=== PATIENT | female | born 1950 | race Caucasian/White ===

== ENCOUNTER → 2021-09-19 | Outpatient (CLI) | payer MEDICARE ==
[~2021-09-19] MED LIST: AMIT10 PO; GABA100 PO; INSLIS75I SC; LEVOXYL; LORA1 PO; NAPR500 PO
[2021-09-19 16:13] LABS: BASOPHILS ABSOLUTE AUTO 0.06 K/mm3 (0.00-0.23); BASOPHILS PERCENT AUTO 1 % (0-2); EOSINOPHILS ABSOLUTE AUTO 0.23 K/mm3 (0.00-0.68); EOSINOPHILS PERCENT AUTO 3 % (0-6); Hematocrit 40.4 % (33.0-51.0); Hemoglobin 12.4 g/dL (11.5-16.0); IMMATURE GRAN ABSOLUTE AUTO 0.02 K/mm3 (0.00-0.10); IMMATURE GRAN PERCENT AUTO 0 % (0-1); LYMPHOCYTES ABSOLUTE AUTO 2.07 K/mm3 (0.84-5.20); LYMPHOCYTES PERCENT AUTO 28 % (21-46); MONOCYTES ABSOLUTE AUTO 0.52 K/mm3 (0.16-1.47); MONOCYTES PERCENT AUTO 7 % (4-13); Mean Corpuscular HGB 28.8 pg (26.0-34.0); Mean Corpuscular HGB Conc 30.7 g/dL (31.5-36.5); Mean Corpuscular Volume 94 fL (80-100); Mean Platelet Volume 10.8 fL (9.1-12.4); NEUTROPHILS ABSOLUTE AUTO 4.59 K/mm3 (1.96-9.15); NEUTROPHILS PERCENT AUTO 61 % (41-73); Platelet Count 228 K/mm3 (150-400); RDW Coefficient Variation 14.6 % (11.7-14.2); RDW Standard Deviation 50.4 fL (35.1-46.3); Red Blood Cell Count 4.31 M/mm3 (3.80-5.20); White Blood Cell Count 7.49 K/mm3 (4.00-11.30)
[2021-09-19 16:31] LABS: Alanine Aminotransfer (ALT/SGP 36 U/L (12-78); Albumin, Blood 3.5 g/dL (3.4-5.0); Albumin/Globulin Ratio 0.9 (0.8-1.8); Alk Phos 75 U/L (50-136); Anion Gap 3 mmol/L (6-16); Aspartate Aminotrans (AST/SGOT 25 U/L (12-37); Bilirubin, Total 0.6 mg/dL (0.1-1.0); Blood Urea Nitrogen 17 mg/dL (8-24); Bun/Creatinine Ratio 20.9 (12.0-20.0); CHOL/HDL RATIO 4.3; CO2, Blood 30 mmol/L (21-32); Calcium, Blood 8.7 mg/dL (8.5-10.1); Chloride, Blood 106 mmol/L (98-108); Cholesterol 171 mg/dL (50-200); Creatinine, Blood 0.82 mg/dL (0.40-1.00); Globulin, Blood 3.9 g/dL (2.2-4.0); Glomerular Filtration Rate >60 (60-); Glucose, Blood 106 mg/dL (70-99); HDL Cholesterol 40 mg/dL (>39); LDL/HDL RATIO 2.2; Low Density Lipoprotein Chol 87 mg/dL (0-110); Potassium, Blood 4.2 mmol/L (3.5-5.5); Sodium, Blood 139 mmol/L (136-145); Total Protein, Blood 7.4 g/dL (6.4-8.2); Triglycerides 219 mg/dL (30-160); Very Low Density Lipoprot Chol 43 mg/dL (6-32)
== END | disposition home or self-care (01) ==
LOC: LAB 15:06 → LAB SHORT 15:06
PROVIDERS: Nurse Practitioner
DX: Z11.59 Encounter for screening for other viral diseases (principal); E03.9 Hypothyroidism, unspecified; E78.5 Hyperlipidemia, unspecified; I10 Essential (primary) hypertension; E11.9 Type 2 diabetes mellitus without complications
CPT/HCPCS: 80053; 80061; 82043; 84443; 85025; 86803

== ENCOUNTER → 2021-11-09 | Outpatient (CLI) | payer MEDICARE, OTHER | END | disposition home or self-care (01) | LOC: LAB SHORT 12:05 → LAB 12:05 | DX: E03.9 Hypothyroidism, unspecified (principal) | CPT/HCPCS: 84443 ==

== ENCOUNTER → 2022-08-11 | Outpatient (CLI) | payer MEDICARE, OTHER ==
[2022-08-11 18:20] LABS: Albumin, Blood 3.5 g/dL (3.4-5.0); Albumin/Globulin Ratio 0.8 (0.8-1.8); Bilirubin, Total 0.3 mg/dL (0.1-1.0); Bun/Creatinine Ratio 24.5 (12.0-20.0); Calcium, Blood 9.2 mg/dL (8.5-10.1); Creatinine, Blood 1.02 mg/dL (0.40-1.00); Globulin, Blood 4.5 g/dL (2.2-4.0); Potassium, Blood 4.3 mmol/L (3.5-5.5); Thyroid Stimulating Hormone 1.36 uIU/mL (0.360-4.800)
== END ==
LOC: LAB SHORT 15:38 → LAB 15:38
PROVIDERS: Student in an Organized Health Care Education/Training Program
DX: E03.9 Hypothyroidism, unspecified (principal); M17.11 Unilateral primary osteoarthritis, right knee
CPT/HCPCS: 80053; 84443

== ENCOUNTER → 2024-04-08 | Outpatient (CLI) | payer MEDICARE, OTHER | LOC: LAB SHORT 13:03 → LAB 13:03 | DX: N39.0 Urinary tract infection, site not specified (principal) | CPT/HCPCS: 87086 ==

== ENCOUNTER 2025-04-28 06:04 | Day surgery (SDC) | payer OTHER ==
[~2025-04-28] VITALS: Ht 165.1 cm; Wt 100.1 kg
[2025-04-28] VITALS (14 sets, daily range): BP systolic 120–158; BP diastolic 50–83
[~2025-04-28 06:04] MED LIST changes: +Cyclobenzaprine5 MG PO; +GABA300 PO; +HYDROCODONE-AC1 EA19 PO; +IBUP800 PO; +LEVOTHYROXINE200 MCG PO; +LOSARTAN POTASS25 M1 PO; +METF500 PO; +Pravastatin Sod80 MG PO; +TERBINAFINE HC250 MG PO; +TRAM50 PO; +Venlafaxine HC225 MG PO
[2025-04-28] MEDS ORDERED: Chlorhexidine Mouth Care 15 ML UDC MT SCH (06:20)
[2025-04-28] MEDS ORDERED: Ropivacaine 0.5% HCl/Pf 123.125 MG,EPINEPHrine HCL 0.25 MG,Ketorolac Tromethamine 15 MG... INFIL SCH (06:20)
[2025-04-28] MEDS ORDERED: Tranexamic Acid 100 ML IV SCH (06:20)
[2025-04-28] MEDS ORDERED: CeFAZolin Sodium 2,000 MG in NS 100 ML IV SCH ×2 (06:20→16:00)
[2025-04-28] MEDS ORDERED: CeFAZolin Sodium 2,000 MG VIAL ONE (06:38)
[2025-04-28] MEDS ORDERED: Midazolam HCl 1MG / ML 2ML Vial ONE (07:00)
[2025-04-28] MEDS ORDERED: Metoclopramide HCl 5MG / ML 2ML Vial ONE (07:00)
[2025-04-28] MEDS ORDERED: Ondansetron HCl 2 MG / ML 2ML Vial ONE (07:00)
[2025-04-28] MEDS ORDERED: HYDROmorphone HCl/Pf 1MG SYR ONE (07:00)
[2025-04-28] MEDS ORDERED: Magnesium Sulfate 500 MG / ML 2ML Vial ONE (07:06)
--- NOTE | 2025-04-28 08:10 | NUR ---
History, Chart, Medications and Allergies reviewed before start of procedure.Lungs clear T/O to Auscultation. Patient confirms NPO status and agrees with scheduled surgery. Pre-Op teaching done. Pt verbalizes understanding.DAUGHTER AT BED SIDE
[2025-04-28] MEDS ORDERED: Phenylephrine HCl 100 MCG/ML-NS 10MLSYR (1MG/10ML) ONE (08:38)
[2025-04-28] MEDS ORDERED: ePHEDrine Sulfate 50 MG/ML 1ML Injection ONE (08:39)
[2025-04-28] MEDS ORDERED: Ondansetron HCl 2 MG / ML 2ML Vial IV PRN ×2 (09:25→09:50)
[2025-04-28] MEDS ORDERED: Morphine Sulfate 4 MG/1 ML Injection IV PRN (09:25)
[2025-04-28] MEDS ORDERED: FentaNYL Citrate 50 MCG/ML 2 ML Injection IV PRN ×2 (09:25→09:30)
[2025-04-28] MEDS ORDERED: ePHEDrine Sulfate 50 MG/ML 1ML Injection IV PRN (09:25)
[2025-04-28] MEDS ORDERED: HYDROmorphone HCl/Pf 1MG SYR IV PRN ×2 (09:30→09:40)
[2025-04-28] MEDS ORDERED: Magnesium Hydroxide Conc 10 ML UDC PO PRN (09:40)
[2025-04-28] MEDS ORDERED: Prochlorperazine Edisylate 10 mg Vial IV PRN (09:40)
[2025-04-28] MEDS ORDERED: FLU VACC TS2025(65UP)/MF59C/PF 45 MCG/0.5 ML SYRINGE IM SCH (09:40)
[2025-04-28] MEDS ORDERED: Metoclopramide HCl 5MG / ML 2ML Vial IV PRN (09:45)
[2025-04-28] MEDS ORDERED: ASPI81CH PO (10:47)
[2025-04-28] MEDS ORDERED: Insulin Regular 100 UNIT/ML 10ML Vial SC SCH (11:30)
[2025-04-28] MEDS ORDERED: Ketorolac Tromethamine 15mg Vial IV SCH (12:00)
--- NOTE | 2025-04-28 14:28 | NUR ---
PT ATTEMTPED TO WORK WITH THERAPY COULD NOT AMBULATE SAFELY. PT TRIED PULLING SELF TO CHAIR WHILE THERAPIST AND THIS RN IN ROOM. WAS MAX THREE PERSON TO STAND AND PIVOT TO CHAIR. PT STATED TO "GET MY PAPERS, I'M NOT STAYING". ADVISED PT IT WASN'T SAFE FOR HER TO DC AT THIS TIME. PT UPSET, SAYING CAN'T STAY OVERNIGHT IN HOSPITAL. I ADVISED PT THERE ISN'T A CERTAIN TIME SHE HAS TO DC BY BUT WANT HER TO BE SAFE. PT SITTING IN CHAIR. DAUGHTER IS BEDSIDE. DAUGHTER DISCUSSED GIVING IT MORE TIME W/PT. PT AGREEABLE. ADVISED PT'S DAUGHTER IF THER PATIENT WERE TO TRY TO LEAVE AT THIS TIME, IT WOULD BE AMA. PT'S DAUGHTER STATED SHE EXPLAINED THAT TO PT. PT SITTING UP IN CHAIR ON FAR SIDE OF BED W/CALL LIGHT IN REACH. PROVIDED FRESH ICEWATER TO PT. PHYS THERAPIST STATED WOULD CHECK BACK WITH PT.
[2025-04-28] MEDS ORDERED: MetFORMIN HCl 500 mg PO SCH (17:00)
--- NOTE | 2025-04-28 17:43 | NUR ---
SUMMARY PT REMAINS UNSTABLE FEET. RLE TENDS TO GIVE WHEN ATTEMPTS TO WALK. NEED FOR FURTHER PHYSICAL THERAPY. PT SITTING UP IN CHAIR, EATING DINNER AT THIS TIME. POLAR PACK IN PLACE. CALL LIGHT IN REACH.
[2025-04-29 00:31] VITALS: BP 126/58
--- NOTE | 2025-04-29 03:01 | NUR ---
SHIFT SUMMARY POD 1 S/P R PRISCA; DRESSING CDI. [facility]YO THERAPY IN PLACE, VIVIAN. UP IN CHAIR AND BSC. PT UP WITH 2 MODERATE ASSIST TO BSC AND CHAIR. VIVIAN PO, DENIES N/V. PAIN MANAGED PER EMAR. ABX INFUSED PER ORDERS, IV NOW PATENT/SL. PT CURRENTLY RESTING IN BED, CALL LIGHT IN REACH. VSS; RESP EVEN/UNLABORED ON RA. PLAN TO WORK WITH THERAPY AND FOR POSSIBLE D/C HOME TODAY. WILL GIVE REPORT TO ONCOMING RN.
[2025-04-29 05:27] VITALS: BP 127/46
[2025-04-29 06:07] LABS: BASOPHILS ABSOLUTE AUTO 0.03 K/mm3 (0.00-0.23); BASOPHILS PERCENT AUTO 0 % (0-2); EOSINOPHILS ABSOLUTE AUTO 0.10 K/mm3 (0.00-0.68); EOSINOPHILS PERCENT AUTO 1 % (0-6); Hematocrit 28.5 % (33.0-51.0); Hemoglobin 8.8 g/dL (11.5-16.0); IMMATURE GRAN ABSOLUTE AUTO 0.03 K/mm3 (0.00-0.10); IMMATURE GRAN PERCENT AUTO 0 % (0-1); LYMPHOCYTES ABSOLUTE AUTO 1.35 K/mm3 (0.84-5.20); LYMPHOCYTES PERCENT AUTO 17 % (21-46); MONOCYTES ABSOLUTE AUTO 0.89 K/mm3 (0.16-1.47); MONOCYTES PERCENT AUTO 11 % (4-13); Mean Corpuscular HGB Conc 30.9 g/dL (31.5-36.5); Mean Corpuscular Volume 88 fL (80-100); NEUTROPHILS ABSOLUTE AUTO 5.46 K/mm3 (1.96-9.15); NEUTROPHILS PERCENT AUTO 69 % (41-73); NRBC ABSOLUTE 0.00 K/mm3 (0.00-0.02); NRBC Auto 0.0 /100 WBC (0.0-0.2); Platelet Count 165 K/mm3 (150-400); RDW Coefficient Variation 14.7 % (11.7-14.2); RDW Standard Deviation 47.5 fL (35.1-46.3)
[2025-04-29 06:34] LABS: Anion Gap 7.0 mmol/L (3-11); Blood Urea Nitrogen 26.0 mg/dL (8-24); CO2, Blood 25.0 mmol/L (21-32); Calcium, Blood 8.1 mg/dL (8.5-10.1); Chloride, Blood 108.0 mmol/L (98-108); Creatinine, Blood 0.9 mg/dL (0.40-1.00); Glucose, Blood 118.0 mg/dL (70-99); Potassium, Blood 4.2 mmol/L (3.5-5.5); Sodium, Blood 136.0 mmol/L (136-145)
[2025-04-29 07:08] VITALS: BP 113/53
[2025-04-29 14:20] VITALS: BP 112/58
--- NOTE | 2025-04-29 14:41 | NUR ---
DISCHARGING PT CLEARED THERAPY. EAGER TO DC HOME. HAS MET PARAMETERS FOR DC. REVIEWED DC INSTRUCTIONS W/PT; VERBALIZED UNDERSTANDING. DAUGHTER BEDSIDE. NECKTIE STITCHER ASSISTING W/PT LEAVING UNIT.
--- NOTE | 2025-04-29 15:19 | NUR ---
DISCHARGED LEFT UNIT IN . DAUGHTER HAD POSSESSIONS AND DC PAPERWORK IN HAND. DINING ROOM CAPTAIN ASSISTED OUT TO CAR.
== END 2025-04-29 15:18 | disposition home or self-care (01) ==
LOC: ORSCMMR 06:04 → ORD 07:30 → SURS 10:02 → ORSCMMR 04-29 15:18
PROVIDERS: Orthopaedic Surgery
PROC: 0SR90JA Replacement of Right Hip Joint with Synthetic Substitute, Uncemented, Open Approach (ICD-10-PCS; principal; 2025-04-28 07:30)
DX: M16.11 Unilateral primary osteoarthritis, right hip (principal); G47.33 Obstructive sleep apnea (adult) (pediatric); E03.9 Hypothyroidism, unspecified; I10 Essential (primary) hypertension; E11.9 Type 2 diabetes mellitus without complications; E66.9 Obesity, unspecified; Z68.38 Body mass index [BMI] 38.0-38.9, adult; Z79.84 Long term (current) use of oral hypoglycemic drugs; Z79.899 Other long term (current) drug therapy; Z85.850 Personal history of malignant neoplasm of thyroid; Z87.891 Personal history of nicotine dependence
CPT/HCPCS: 36415; 72170; 80048; 82947; 85025; 97116; 97162; 97530; A9270; C1776; J0166; J0690; J0735; J1171; J1885; J2250; J2371; J2405; J2704; J2765; J2795; J3475; J7120

== ENCOUNTER 2025-05-08 11:25 | Inpatient (IN) | payer OTHER ==
[~2025-05-08] VITALS: Ht 165.1 cm; Wt 109.2 kg
[~2025-05-08 11:25] MED LIST changes: +ASPI81CH PO
[2025-05-08] MEDS ORDERED: Lidocaine 4% 1 Patch TOP ONE (12:15)
[2025-05-08] MEDS ORDERED: Morphine Sulfate 4 MG/1 ML Injection IV ONE ×3 (12:15→20:45)
[2025-05-08] MEDS ORDERED: HYDROmorphone HCl/Pf 1MG SYR IV ONE (15:25)
[2025-05-08 15:46] LABS: BASOPHILS ABSOLUTE AUTO 0.05 K/mm3 (0.00-0.23); BASOPHILS PERCENT AUTO 1 % (0-2); EOSINOPHILS ABSOLUTE AUTO 0.21 K/mm3 (0.00-0.68); EOSINOPHILS PERCENT AUTO 2 % (0-6); Hematocrit 26.9 % (33.0-51.0); Hemoglobin 8.4 g/dL (11.5-16.0); IMMATURE GRAN ABSOLUTE AUTO 0.11 K/mm3 (0.00-0.10); IMMATURE GRAN PERCENT AUTO 1 % (0-1); LYMPHOCYTES ABSOLUTE AUTO 1.09 K/mm3 (0.84-5.20); LYMPHOCYTES PERCENT AUTO 11 % (21-46); MONOCYTES ABSOLUTE AUTO 0.59 K/mm3 (0.16-1.47); MONOCYTES PERCENT AUTO 6 % (4-13); Mean Corpuscular HGB Conc 31.2 g/dL (31.5-36.5); Mean Corpuscular Volume 88 fL (80-100); NEUTROPHILS ABSOLUTE AUTO 7.82 K/mm3 (1.96-9.15); NEUTROPHILS PERCENT AUTO 79 % (41-73); NRBC ABSOLUTE 0.00 K/mm3 (0.00-0.02); NRBC Auto 0.0 /100 WBC (0.0-0.2); Platelet Count 298 K/mm3 (150-400); RDW Coefficient Variation 15.7 % (11.7-14.2); RDW Standard Deviation 49.3 fL (35.1-46.3)
[2025-05-08 16:11] LABS: Anion Gap 10.0 mmol/L (3-11); Blood Urea Nitrogen 20.0 mg/dL (8-24); CO2, Blood 24.0 mmol/L (21-32); Calcium, Blood 8.3 mg/dL (8.5-10.1); Chloride, Blood 110.0 mmol/L (98-108); Creatinine, Blood 0.76 mg/dL (0.40-1.00); Glucose, Blood 132.0 mg/dL (70-99); Magnesium, Blood 2.0 mg/dL (1.6-2.4); Potassium, Blood 3.7 mmol/L (3.5-5.5); Sodium, Blood 140.0 mmol/L (136-145)
[2025-05-08] MEDS ORDERED: FLU VACC TS2025(65UP)/MF59C/PF 45 MCG/0.5 ML SYRINGE IM SCH (21:30)
[2025-05-08] MEDS ORDERED: Ondansetron HCl 2 MG / ML 2ML Vial IV PRN (21:30)
[2025-05-08] MEDS ORDERED: NS 1,000 ML IV SCH (21:35)
[2025-05-09 00:36] VITALS: BP 163/71
[2025-05-09 00:37] VITALS: BP 163/71
[2025-05-09] MEDS ORDERED: FentaNYL Citrate 50 MCG/ML 2 ML Injection IV PRN (01:50)
[2025-05-09 02:52] VITALS: BP 149/69
[2025-05-09] MEDS ORDERED: HYDROmorphone HCl/Pf 1MG SYR IV PRN ×2 (04:05→08:10)
--- NOTE | 2025-05-09 05:16 | NUR ---
ADMITTED TONIGHT FROM ER FOR PELVIC INJURY. PT STATES HAS NO HX FALLS.PT HAS HX RECENT R HIP SURGERY,TELFA APPEARING DRESSING WAS NOT FULLY INTACT AROUND EDGES,SCANT SEROUS DRNG TO OUTER LEDGES AND SCANT DRIED DRNG TO CENTER LINE, REPLACED DRESSING WITH ANTIMICROBIAL TELFA.INCISION APPEARS C D/I.PT C/O BURNING BEHIND R KNEE REPORTS FEELS LIKE A "RASH" NO VISIBLE RASH, BUT DIRECTLY BEHIND R KNEE DOES APPEAR SLIGHTLY BAKER THAN BEHIND L KNEE AND ALSO NOTED MILD PINK COLORING WHEN COMPARED TO BEHIND L KNEE,NO TEMPERATURE DIFFERENCES NOTED,BILAT PEDAL PULSES PRESENT.PT C/O FENTANYL EFFECTIVE, BUT NOT LASTING 4 HR INTERVAL ORDERED.I CALLED DR FONG AND NOTIFIED OF ABOVE. RECEIVED ORDERS FOR DILAUDID IV AND CHANGED PAS ORDER TO LLE ONLY. PT WITH NO C/O CALF TENDERNESS.BIALT FEET RED WITH MULTIPLE TOENAILS DISINTEGRATING OR ALREADY MISSING.PT REPORTS CHRONIC FUNGAL DISEASE.
[2025-05-09 07:25] VITALS: BP 147/57
[2025-05-09 08:15] LABS: Alanine Aminotransfer (ALT/SGP 18.0 U/L (12-78); Albumin, Blood 2.7 g/dL (3.4-5.0); Albumin/Globulin Ratio 0.7 (0.8-1.8); Anion Gap 7.0 mmol/L (3-11); Aspartate Aminotrans (AST/SGOT 14.0 U/L (12-37); Bilirubin, Total 0.4 mg/dL (0.1-1.0); Blood Urea Nitrogen 17.0 mg/dL (8-24); CO2, Blood 26.0 mmol/L (21-32); Calcium, Blood 8.3 mg/dL (8.5-10.1); Chloride, Blood 108.0 mmol/L (98-108); Creatinine, Blood 0.64 mg/dL (0.40-1.00); Globulin, Blood 4.1 g/dL (2.2-4.0); Glucose, Blood 118.0 mg/dL (70-99); Magnesium, Blood 2.1 mg/dL (1.6-2.4); Potassium, Blood 4.0 mmol/L (3.5-5.5); Sodium, Blood 137.0 mmol/L (136-145); Total Protein, Blood 6.8 g/dL (6.4-8.2)
--- NOTE | 2025-05-09 08:44 | NUR ---
DR RAY IN TO SEE PT.
[2025-05-09] MEDS ORDERED: Enoxaparin 40 MG/0.4 ML SYR SC SCH (09:00)
[2025-05-09] MEDS ORDERED: MetFORMIN HCl 500 mg PO SCH (09:00)
[2025-05-09] MEDS ORDERED: Polyethylene Glycol 3350 17 gm PO PRN (10:40)
[2025-05-09 14:46] VITALS: BP 117/50
--- NOTE | 2025-05-09 17:00 | NUR ---
SUMMARY NO ACUTE CHANGES T/O SHIFT. PT PAINFUL W/MOVEMENT. MEDICATING PER ORDERS FOR PAIN. REPOSITIONED T/O SHIFT. PUREWICK DRAINING DARK YELLOW URINE. PT TOLERATING PO. CALL LIGHT WITHIN REACH.
[2025-05-09 19:40] VITALS: BP 126/56
--- NOTE | 2025-05-10 05:03 | NUR ---
SHIFT SUMMARY AOX4. VSS. SPO2 MAINTAINED >90% ON 1L 02. DOESNT WEAR O2 AT BASELINE. DENIES DYSPNEA. DOES OCC DESAT POST PAIN MED APPLICATION. REPORTS 7-9/10 PAIN TO PELVIS AREA. MEDICATED 2x W/PO 5MG OXYCODONE, 2x W/1MG IV DILAUDID. PT ABLE TO REST COMFORTABLY POST PAIN MEDS & REPORTS A DECREASE IN PAIN LEVEL TO 6-7/10 WITHOUT ANY MOVEMENT. PENDING TRANSFER TO [facility] FOR SURGICAL PROCEDURE. PUREWICK IN PLACE W/APPROX 500ML DARK ORANGE/[place] URINE. PT REPOSITIONED Q2H PRN TO PREVENT SORE. BILAT FEET PURPLE/RED DISCOLORATION, CAP REFILL 3-4 SEC, COOL TO TOUCH, PT ABLE TO WIGGLE & FLEX FEET. CALL LIGHT IN REACH.
[2025-05-10 05:49] LABS: BASOPHILS ABSOLUTE AUTO 0.05 K/mm3 (0.00-0.23); BASOPHILS PERCENT AUTO 1 % (0-2); EOSINOPHILS ABSOLUTE AUTO 0.36 K/mm3 (0.00-0.68); EOSINOPHILS PERCENT AUTO 4 % (0-6); Hematocrit 27.2 % (33.0-51.0); Hemoglobin 8.2 g/dL (11.5-16.0); IMMATURE GRAN ABSOLUTE AUTO 0.08 K/mm3 (0.00-0.10); IMMATURE GRAN PERCENT AUTO 1 % (0-1); LYMPHOCYTES ABSOLUTE AUTO 1.40 K/mm3 (0.84-5.20); LYMPHOCYTES PERCENT AUTO 15 % (21-46); MONOCYTES ABSOLUTE AUTO 0.73 K/mm3 (0.16-1.47); MONOCYTES PERCENT AUTO 8 % (4-13); Mean Corpuscular HGB Conc 30.1 g/dL (31.5-36.5); Mean Corpuscular Volume 90 fL (80-100); NEUTROPHILS ABSOLUTE AUTO 6.99 K/mm3 (1.96-9.15); NEUTROPHILS PERCENT AUTO 73 % (41-73); NRBC ABSOLUTE 0.00 K/mm3 (0.00-0.02); NRBC Auto 0.0 /100 WBC (0.0-0.2); Platelet Count 300 K/mm3 (150-400); RDW Coefficient Variation 15.9 % (11.7-14.2); RDW Standard Deviation 52.0 fL (35.1-46.3)
[2025-05-10 06:28] LABS: Magnesium, Blood 2.1 mg/dL (1.6-2.4)
[2025-05-10 06:29] LABS: Anion Gap 9.0 mmol/L (3-11); Blood Urea Nitrogen 21.0 mg/dL (8-24); CO2, Blood 26.0 mmol/L (21-32); Calcium, Blood 8.1 mg/dL (8.5-10.1); Chloride, Blood 107.0 mmol/L (98-108); Creatinine, Blood 0.73 mg/dL (0.40-1.00); Glucose, Blood 142.0 mg/dL (70-99); Potassium, Blood 3.6 mmol/L (3.5-5.5); Sodium, Blood 138.0 mmol/L (136-145)
[2025-05-10 07:31] VITALS: BP 132/56
[2025-05-10] MEDS ORDERED: HYDROmorphone HCl/Pf 1MG SYR IV PRN (08:15)
[2025-05-10] MEDS ORDERED: Cholecalciferol 1000 Unit Tablet (=25MCG) PO SCH (09:00)
--- NOTE | 2025-05-10 14:23 | NUR ---
PT C/O OF PAIN TO R HEEL HEEL HAS BEEN FLOATED ON PILLOW. PLACED PROTECTIVE MEPILEX TO BOTH HEELS.
[2025-05-10 14:49] VITALS: BP 135/54
--- NOTE | 2025-05-10 16:54 | NUR ---
summary placed protective mepilex to heels for comfort. pt reported r heel sore. medicated per orders for pain t/o day. pt was repositioned t/o day and is use encouraged. call light in reach.
[2025-05-10 19:15] VITALS: BP 138/44
[2025-05-10 20:36] VITALS: BP 155/65
[2025-05-11 04:36] VITALS: BP 111/55
--- NOTE | 2025-05-11 06:43 | NUR ---
SHIFT SUMMARY A&O X4. PAIN MANAGED WELL PER EMAR. TEFLA DRESSING TO R HIP C/D/I. PT OCCASIONALLY DESATS AFTER PAIN MEDICATION ADMINISTRATION. CONTINOUS PULSE OX IN PLACE SPO2 95% ON 2L O2 VIA NC. FOAM HEEL PROTECTORS TO BILATERAL FEET. PENDING TRANSFER TO [facility]. PT RESTING IN BED, RESPIRATIONS EVEN AND UNLABORED. CALL LIGHT WITHIN REACH.
[2025-05-11 07:38] VITALS: BP 125/59
[2025-05-11 14:58] VITALS: BP 138/58
--- NOTE | 2025-05-11 19:17 | NUR ---
SUMMARY ASSUMED CARE OF PT @0700. VSS. AXO4. ON 2LNC WHEN DILAUDID ADMINISTERED - CONT BIOX IN PLACE. PUREWICK IN PLACE - PATENT AND CHANGED OUT. PT REPOSITIONED T/O SHIFT WITH INTENTION. TELFA TO RHIP CDI. PAIN MEDS ADMINISTERED PER EMAR. PT AWARE OF PENDING COBRA TX AND IS PREPARED FOR THIS. OTHERWISE, FAMILY IN AND OUT OF ROOM THIS SHIFT. PT USING CALL LIGHT APPROPRIATELY.
[2025-05-11 20:17] VITALS: BP 139/50
--- NOTE | 2025-05-12 04:58 | NUR ---
SHIFT SUMMARY PT HAS RESTED T/O THE NIGHT. PAIN MANAGED PER EMAR, WITH EFFECT. VITALS STABLE. RESP E/U ON RA. O2 IN PLACE AT [facility] TO MAINTAIN SATS WNL, WHEN RECEIVING IV PAIN MEDICATION. RICK BIOX IN PLACE. PLAN OF CARE REMAINS UNCHANGED. STILL AWAITING TRANSFER TO [facility]. BED IN LOWEST POSITION, CALL LIGHT WITHIN REACH.
[2025-05-12 05:52] VITALS: BP 122/52
[2025-05-12 07:19] VITALS: BP 118/54
[2025-05-12 15:11] VITALS: BP 138/58
--- NOTE | 2025-05-12 17:22 | NUR ---
SUMMARY ASSUMED CARE OF PT @0700. VSS. PAIN MEDS PER EMAR AND REPOSITIONING ORDERED. R HIP REMAINS PAINFUL - UTILIZING ICE TO R HIP AND BILAT KNEES TO AID PAIN MEDICATION EFFICIENCY. ON RA THIS SHIFT. PUREWICK IN PLACE. TELFA CDI TO R HIP. AWAITING TRANSFER TO [facility] - PT AWARE OF THIS AND PENDING SURGERY. PT UTILIZING INCENTIVE SPIROMETRY. OTHERWISE, RESTING IN BED. USING CALL LIGHT APPROPRIATELY.
[2025-05-12 19:21] VITALS: BP 138/58
--- NOTE | 2025-05-12 19:31 | NUR ---
REPORT CALLED TO ROSMERY VELEZ RN POST SUMMARY NOTE - NO CHANGES. 10MG OXYCODONE ADMINISTERED PREAMBULANCE DRIVE PER REQUEST. DC INSTRUCTIONS PROVIDED TO AMBULANCE TEAM.
== END 2025-05-12 19:28 | disposition short-term general hospital (02) | DRG 543 ==
LOC: ER 11:25 → SURS 21:28 → ERHOLD 21:28 → SURS 05-09 00:56
PROVIDERS: Emergency Medicine; ADMIT Internal Medicine
DX: M84.454A Pathological fracture, pelvis, initial encounter for fracture (principal); M97.01XA Periprosthetic fracture around internal prosthetic right hip joint, initial encounter; M84.48XA Pathological fracture, other site, initial encounter for fracture; I10 Essential (primary) hypertension; E78.5 Hyperlipidemia, unspecified; E03.9 Hypothyroidism, unspecified; M79.604 Pain in right leg; M19.90 Unspecified osteoarthritis, unspecified site; E11.40 Type 2 diabetes mellitus with diabetic neuropathy, unspecified; F41.8 Other specified anxiety disorders; D64.9 Anemia, unspecified; E66.01 Morbid (severe) obesity due to excess calories; Z60.2 Problems related to living alone; Z79.890 Hormone replacement therapy; Z79.82 Long term (current) use of aspirin; Z88.0 Allergy status to penicillin; Z88.1 Allergy status to other antibiotic agents; Z79.84 Long term (current) use of oral hypoglycemic drugs; Z68.37 Body mass index [BMI] 37.0-37.9, adult
CPT/HCPCS: 36415; 72170; 72193; 80048; 80053; 82306; 82947; 83036; 83735; 85025; 94762; 96374-59; 96375; 96376; 99285-25; A6590; A9270; J1171; J1650; J2270; J3010; J7030; Q9967